=== PATIENT | female | born 1970 | race Caucasian/White ===

== ENCOUNTER 2017-10-30 11:36 | Emergency (ER) | payer MEDICARE, MEDICAID ==
[~2017-10-30] VITALS: Ht 160 cm; Wt 77.3 kg
[~2017-10-30 11:36] MED LIST: CYCL-1 PO
[2017-10-30 12:16] VITALS: BP 128/90
[2017-10-30] MEDS ORDERED: BUPIVAcaine/PF 2.5 mg/ml (0.25%) 30ml vial IJ ONE (12:25)
[2017-10-30] MEDS ORDERED: LIDOcaine 1% 30ml preserv. free vial IJ ONE (12:25)
[2017-10-30] MEDS ORDERED: triamcinolone acetonide 40mg/ml inj IJ ONE (12:25)
== END 2017-10-30 13:38 | disposition home or self-care (01) ==
LOC: ER 11:37
DX: M25.512 Pain in left shoulder (principal); I25.10 Atherosclerotic heart disease of native coronary artery without angina pectoris; I25.2 Old myocardial infarction; G89.29 Other chronic pain; M54.9 Dorsalgia, unspecified
CPT/HCPCS: 20552; 99284; J3301; J3490